=== PATIENT | female | born 1995 | race Caucasian/White ===

== ENCOUNTER 2017-06-10 01:09 | Emergency (ER) | payer SELFPAY ==
[2017-06-10 04:08] LABS: BASOPHIL % 0.5 % (0-2); PLATELET COUNT 335 x10^3mcL (130-400)
[2017-06-10 04:15] LABS: RED CELL DISTRIBUTION WIDTH 15.4 % (11.5-14.5)
[2017-06-10 05:28] VITALS: BP 128/95
== END 2017-06-10 05:28 | disposition home or self-care (01) ==
LOC: ED 01:09
PROVIDERS: Emergency Medicine
DX: N92.1 Excessive and frequent menstruation with irregular cycle (principal); D50.0 Iron deficiency anemia secondary to blood loss (chronic); N39.0 Urinary tract infection, site not specified
CPT/HCPCS: 36415; J1885; Q0162

== ENCOUNTER 2020-03-02 23:56 | Emergency (ER) | payer SELFPAY ==
[~2020-03-02] VITALS: Ht 172.7 cm; Wt 122.5 kg
[2020-03-03 00:03] VITALS: Ht 172.7 cm; Wt 122.5 kg
[2020-03-03 01:34] VITALS: BP 133/69
== END 2020-03-03 01:34 | disposition home or self-care (01) ==
LOC: ED 23:56
DX: S93.402A Sprain of unspecified ligament of left ankle, initial encounter (principal); S93.602A Unspecified sprain of left foot, initial encounter; Z90.49 Acquired absence of other specified parts of digestive tract; W01.0XXA Fall on same level from slipping, tripping and stumbling without subsequent striking against object, initial encounter; Y93.89 Activity, other specified; Y92.89 Other specified places as the place of occurrence of the external cause; Y99.8 Other external cause status
CPT/HCPCS: J1885; Q0092